=== PATIENT | female | born 2005 | race Caucasian/White ===

== ENCOUNTER 2024-01-18 06:00 | Inpatient (IN) | payer BC ==
[2024-01-22 06:32] VITALS: BMI 33.3
[2024-01-22] MEDS ORDERED: Bupivacaine/Epinephrine 0.25% 30 ML VIAL ONE (08:00)
[2024-01-22] MEDS ORDERED: Diphenoxylate HCl/Atropine Tablet PO PRN (08:01)
[2024-01-22] MEDS ORDERED: Lidocaine 1% (PF) 30 ML VIAL SC PRN (08:01)
[2024-01-22] MEDS ORDERED: fentaNYL 50 mcg/mL 1 mL Vial SLOW IVP PRN (08:01)
[2024-01-22] MEDS ORDERED: Promethazine HCl 25 MG/ML VIAL IM PRN ×4 (08:01→18:27)
[2024-01-22] MEDS ORDERED: Misoprostol 200 MCG TAB PR PRN (08:01)
[2024-01-22] MEDS ORDERED: HYDROcodone/Acetaminophen 5/325 mg Tablet PO PRN ×3 (08:01→17:11)
[2024-01-22] MEDS ORDERED: Ondansetron PF 4 MG/2 ML Vial IVP PRN ×3 (08:01→17:11)
[2024-01-22] MEDS ORDERED: Carboprost 250 MCG/ML AMP IM PRN (08:01)
[2024-01-22] MEDS ORDERED: hydrALAZINE 20 MG/ML VIAL SLOW IVP PRN ×2 (08:01→17:11)
[2024-01-22] MEDS ORDERED: Acetaminophen 500 MG TAB PO PRN (08:01)
[2024-01-22 08:14] LABS: Hematocrit 37.4 % (34.9-44.5); Hemoglobin 13.3 g/dL (12.0-15.5); Mean Corpuscular HGB CONC 35.6 g/dL (32.0-36.0); Mean Corpuscular Hemoglobin 32.2 pg (27.0-33.0); Mean Corpuscular Volume 90.6 fL (81.6-98.3); Mean Platelet Volume 9.9 fL (7.4-10.4); Platelet Count 284 10x3/uL (150-450); RBC Distribution Width 13.4 % (11.5-14.5); Red Blood Cell (RBC) Count 4.13 10x6/uL (3.90-5.03); White Blood Cell (WBC) Count 11.9 10x3/uL (3.5-10.5)
[2024-01-22] MEDS: Lactated Ringer's 1,000 ML IV SCH (08:15)
[2024-01-22] MEDS ORDERED: Oxytocin 30 units/NS 500 ML 500 ML IV SCH (08:15)
[2024-01-22] MEDS: Oxytocin 30 units/NS 500 ML 500 ML IV SCH (08:16)
[2024-01-22] MEDS: Oxytocin 30 units/NS 500 ML 500 ML ONE (08:16)
[2024-01-22 08:49] LABS: HBsAg Index 0.16 S/CO (0-0.99); Hep B Surf Ag - L&D Non-Reactive S/CO (NonReactive)
[2024-01-22 08:51] LABS: Syphilis Antibody Nonreactive (Nonreactive); Syphilis Antibody Index 0.03 S/CO (<1.00 Non-Reactive)
[2024-01-22] MEDS: fentaNYL/Ropivacaine Epidural 100 ML ONE (09:28)
[2024-01-22] MEDS ORDERED: diphenhydrAMINE 50 MG/ML VIAL IVP PRN ×2 (10:03→18:27)
[2024-01-22] MEDS ORDERED: Acetaminophen 325 MG TAB PO PRN (10:03)
[2024-01-22] MEDS ORDERED: ePHEDrine Sulfate 50 MG/10 ML VIAL SLOW IVP PRN (10:03)
[2024-01-22] MEDS ORDERED: Moisturizing Cream (Eucerin) 113 GM JAR TOP PRN (10:03)
[2024-01-22] MEDS ORDERED: Naloxone HCl 0.4 mg/ml Vial IVP PRN ×2 (10:03)
[2024-01-22] MEDS ORDERED: Lactated Ringer's 500 ML IV PRN (10:03)
[2024-01-22] MEDS ORDERED: fentaNYL 2 mcg/Ropivacaine 0.2% Epidural 100 ML CADD EPIDURAL SCH (10:15)
[2024-01-22] MEDS ORDERED: Communication Order-Pharmacy FS SCH ×2 (10:15→18:30)
[2024-01-22] MEDS: Ibuprofen 800 MG TAB PO PRN (16:29)
[2024-01-22] MEDS ORDERED: Tranexamic Acid 1,000 MG in Sodium Chloride 0.9% 100 ML IVPB SCH (17:00)
[2024-01-22] MEDS: Tranexamic Acid 1,000 MG/10 ML VIAL ONE ×2 (17:00→18:25)
[2024-01-22] MEDS ORDERED: Bisacodyl 10 MG SUPP PR PRN (17:11)
[2024-01-22] MEDS ORDERED: Preparation H Ointment 28 GM TUBE PR PRN (17:11)
[2024-01-22] MEDS ORDERED: Lanolin Ointment 7 GM TUBE TOP PRN (17:11)
[2024-01-22] MEDS ORDERED: Benzocaine-Menthol 82.5 ML CAN TOP PRN (17:11)
[2024-01-22] MEDS ORDERED: diphenhydrAMINE 25 MG CAP PO PRN ×2 (17:11→18:27)
[2024-01-22] MEDS ORDERED: Milk Of Magnesia 30 ML UDCUP PO PRN (17:11)
[2024-01-22] MEDS ORDERED: Boostrix 0.5 ML (Tdap) VIAL (>/=7 yrs of age) IM ONE (17:11)
[2024-01-22] MEDS ORDERED: Morphine 4 MG/ML VIAL SLOW IVP SCH (17:30)
[2024-01-22] MEDS: Morphine 4 MG/ML VIAL SLOW IVP SCH (17:33)
[2024-01-22 18:17] LABS: Hematocrit 35.5 % (34.9-44.5); Hemoglobin 12.4 g/dL (12.0-15.5); Mean Corpuscular HGB CONC 34.9 g/dL (32.0-36.0); Mean Corpuscular Hemoglobin 31.6 pg (27.0-33.0); Mean Corpuscular Volume 90.6 fL (81.6-98.3); Mean Platelet Volume 9.2 fL (7.4-10.4); Platelet Count 246 10x3/uL (150-450); RBC Distribution Width 13.4 % (11.5-14.5); Red Blood Cell (RBC) Count 3.92 10x6/uL (3.90-5.03); White Blood Cell (WBC) Count 17.1 10x3/uL (3.5-10.5)
[2024-01-22] MEDS: Tranexamic Acid 1,000 MG in Sodium Chloride 0.9% 100 ML IVPB SCH (18:18)
[2024-01-22 18:27] LABS: INR-International Normal Ratio 0.9; PTT 27.1 sec (22.0-33.0); Prothrombin Time 9.9 sec (9.5-12.1)
[2024-01-22] MEDS ORDERED: Naloxone HCl 0.4 mg/ml Vial IV PRN (18:27)
[2024-01-22] MEDS ORDERED: diphenhydrAMINE 50 MG/ML VIAL IM PRN (18:27)
[2024-01-22] MEDS ORDERED: Ferrous Sulfate 325 MG TAB PO SCH (18:30)
[2024-01-22] MEDS: Tranexamic Acid 1,000 MG/10 ML VIAL FS SCH (18:32)
[2024-01-22] MEDS: FENTANYL 500 MCG/10 ML VIAL 1,000 MCG in Sodium Chloride 0.9% 30 ML IV PRN (19:36)
[2024-01-22] MEDS ORDERED: Docusate 100 MG CAP PO SCH (21:00)
[2024-01-22] MEDS: Ondansetron PF 4 MG/2 ML Vial IVP PRN (21:06)
[2024-01-23 03:46] LABS: #Basophils 0.04 10x3/uL (0.0-0.2); #Eosinphils 0.14 10x3/uL (0.0-0.5); #Monocytes 1.16 10x3/uL (0.0-1.1); #Neutrophils 9.66 10x3/uL (1.5-8.4); %Basophils 0.3 % (0.0-2.0); %Lymphocytes 23.9 % (18.0-47.0); %Neutrophils 66.3 % (40.0-75.0); Hematocrit 33.2 % (34.9-44.5); Hemoglobin 11.3 g/dL (12.0-15.5); Mean Corpuscular Hemoglobin 31.6 pg (27.0-33.0); Mean Corpuscular Volume 92.7 fL (81.6-98.3); Mean Platelet Volume 9.5 fL (7.4-10.4); Platelet Count 251 10x3/uL (150-450); RBC Distribution Width 13.5 % (11.5-14.5); Red Blood Cell (RBC) Count 3.58 10x6/uL (3.90-5.03); White Blood Cell (WBC) Count 14.6 10x3/uL (3.5-10.5)
[2024-01-23] MEDS ORDERED: Ferrous Sulfate 325 MG TAB PO SCH (08:00)
[2024-01-23] MEDS ORDERED: Prenatal Vitamin 1 TAB PO SCH (09:00)
[2024-01-23 09:36] LABS: ALT (SGPT) 13 U/L (8-55); AST (SGOT) 27 U/L (5-34); Albumin 2.5 g/dL (3.5-5.0); Alkaline Phosphatase 167 U/L (40-100); Anion Gap 11 mmol/L (10-20); BUN (Urea Nitrogen) 8 mg/dL (7.0-18.7); Bilirubin, Total 0.4 mg/dL (0.2-1.2); Calc. Creatinine Clearance 189 mL/min (70-130); Calcium 8.7 mg/dL (7.8-10.44); Carbon Dioxide 24 mmol/L (22-29); Chloride 106 mmol/L (98-107); Estimated GFR 129; Globulin 2.8 g/dL (2.4-3.5); Glucose 85 mg/dL (70-105); Potassium 4.1 mmol/L (3.5-5.1); Protein, Total 5.3 g/dL (6.0-8.3); Sodium 137 mmol/L (136-145)
[2024-01-23] MEDS ORDERED: Promethazine HCl 25 MG/ML VIAL IM PRN (09:53)
[2024-01-23] MEDS ORDERED: Bisacodyl 10 MG SUPP PR PRN (09:53)
[2024-01-23] MEDS ORDERED: diphenhydrAMINE 25 MG CAP PO PRN (09:53)
[2024-01-23] MEDS ORDERED: Ondansetron PF 4 MG/2 ML Vial IVP PRN (09:53)
[2024-01-23] MEDS ORDERED: Milk Of Magnesia 30 ML UDCUP PO PRN (09:53)
[2024-01-23] MEDS ORDERED: Preparation H Ointment 28 GM TUBE PR PRN (09:53)
[2024-01-23] MEDS ORDERED: Boostrix 0.5 ML (Tdap) VIAL (>/=7 yrs of age) IM ONE (09:53)
[2024-01-23] MEDS ORDERED: hydrALAZINE 20 MG/ML VIAL SLOW IVP PRN (09:53)
[2024-01-23] MEDS: Docusate 100 MG CAP PO SCH ×2 (10:18→22:58)
[2024-01-23] MEDS: Prenatal Vitamin 1 TAB PO SCH (10:18)
[2024-01-23] MEDS: CEFAZOLIN 2 GM in Sodium Chloride 0.9% 100 ML IVPB SCH (10:19)
[2024-01-23] MEDS: HYDROcodone/Acetaminophen 5/325 mg Tablet PO PRN ×2 (10:19→18:14)
[2024-01-23] MEDS: Ibuprofen 800 MG TAB PO SCH ×2 (15:48)
[2024-01-23] MEDS: Ferrous Sulfate 325 MG TAB PO SCH (16:16)
[2024-01-23] MEDS: Benzocaine-Menthol 82.5 ML CAN TOP PRN (22:58)
[2024-01-24 07:55] VITALS: BP 102/60; TEMP 98.4
[2024-01-24] MEDS: Prenatal Vitamin 1 TAB PO SCH (07:57)
== END 2024-01-24 19:45 | disposition home or self-care (01) | DRG 807 ==
LOC: CSHLD 01-22 06:07 → CSHPP 01-23 09:41
PROVIDERS: ADMIT Student in an Organized Health Care Education/Training Program; ATTEND Student in an Organized Health Care Education/Training Program
PROC: 10907ZC Drainage of Amniotic Fluid, Therapeutic from Products of Conception, Via Natural or Artificial Opening (ICD-10-PCS; principal; 2024-01-22)
PROC: 10E0XZZ Delivery of Products of Conception, External Approach (ICD-10-PCS; 2024-01-22)
PROC: 0HQ9XZZ Repair Perineum Skin, External Approach (ICD-10-PCS; 2024-01-22)
PROC: 0UQMXZZ Repair Vulva, External Approach (ICD-10-PCS; 2024-01-22)
DX: O48.0 Post-term pregnancy (principal); Z37.0 Single live birth; Z3A.40 40 weeks gestation of pregnancy; Z79.82 Long term (current) use of aspirin; Z91.040 Latex allergy status; O90.2 Hematoma of obstetric wound; O70.0 First degree perineal laceration during delivery; O71.82 Other specified trauma to perineum and vulva
CPT/HCPCS: 36415; 51702; 80053; 85025; 85027; 85610; 85730; 86780; 86850; 86900; 86901; 87340; J2270; J2405; J2590; J3010; J3490; J7120